=== PATIENT | female | born 1990 | race Caucasian/White ===

== ENCOUNTER 2017-08-24 10:15 | Inpatient (IN) | payer OTHER ==
[~2017-08-24] VITALS: Ht 157.5 cm; Wt 76.2 kg
[~2017-08-24 10:15] MED LIST: TYLENOL-CODEINE1 TAB PO
[2017-09-04] MEDS ORDERED: PRENATAL TABLE1 EAC1 PO (21:18)
== END 2017-09-06 16:41 | DRG 775 ==
LOC: LDR 09-04 20:41 → OB/GYN 09-04 21:28 → LDR 09-13 10:15
PROC: 10E0XZZ Delivery of Products of Conception, External Approach (ICD-10-PCS; principal; 2017-09-04)
PROC: 0DQR0ZZ Repair Anal Sphincter, Open Approach (ICD-10-PCS; 2017-09-04)
PROC: 10907ZC Drainage of Amniotic Fluid, Therapeutic from Products of Conception, Via Natural or Artificial Opening (ICD-10-PCS; 2017-09-04)
PROC: 4A1HXCZ Monitoring of Products of Conception, Cardiac Rate, External Approach (ICD-10-PCS; 2017-09-04)
PROC: 4A033R1 Measurement of Arterial Saturation, Peripheral, Percutaneous Approach (ICD-10-PCS; 2017-09-04)
DX: O70.21 Third degree perineal laceration during delivery, IIIa (principal); Z3A.38 38 weeks gestation of pregnancy; Z37.0 Single live birth

== ENCOUNTER 2021-01-16 10:13 | Inpatient (IN) | payer OTHER ==
[~2021-01-16] VITALS: Ht 157.5 cm; Wt 72.6 kg
[~2021-01-16 10:13] MED LIST changes: +PRENATAL TABLE1 EAC1 PO
== END 2021-01-23 12:35 | disposition home or self-care (01) | DRG 807 ==
LOC: LDR 01-21 13:53 → SURG-SUITE 01-21 17:19 → OB/GYN 02-13 15:15
PROVIDERS: ADMIT Obstetrics & Gynecology Maternal & Fetal Medicine; ATTEND Obstetrics & Gynecology Maternal & Fetal Medicine
PROC: 10E0XZZ Delivery of Products of Conception, External Approach (ICD-10-PCS; principal; 2021-01-21)
PROC: 0KQM0ZZ Repair Perineum Muscle, Open Approach (ICD-10-PCS; 2021-01-21)
PROC: 10907ZC Drainage of Amniotic Fluid, Therapeutic from Products of Conception, Via Natural or Artificial Opening (ICD-10-PCS; 2021-01-21)
PROC: 4A1HXFZ Monitoring of Products of Conception, Cardiac Rhythm, External Approach (ICD-10-PCS; 2021-01-21)
DX: O70.1 Second degree perineal laceration during delivery (principal); Z37.0 Single live birth; Z3A.36 36 weeks gestation of pregnancy; Z20.822 Contact with and (suspected) exposure to COVID-19